=== PATIENT | male | born 2000 ===

== ENCOUNTER 2019-11-10 20:06 | Emergency (ER) | payer SELFPAY ==
[~2019-11-10] VITALS: Ht 188 cm; Wt 90.7 kg
[2019-11-10 20:09] VITALS: Ht 188 cm; Wt 90.7 kg
[2019-11-10 21:33] VITALS: BP 132/93
== END 2019-11-10 21:33 | disposition home or self-care (01) ==
LOC: ED 20:06
DX: J06.9 Acute upper respiratory infection, unspecified (principal); F41.9 Anxiety disorder, unspecified; J45.909 Unspecified asthma, uncomplicated; Z20.828 Contact with and (suspected) exposure to other viral communicable diseases
CPT/HCPCS: C9803-CS; J7030; U0003-CS